=== PATIENT | male | born 1980 | race African-American/Black ===

== ENCOUNTER 2022-11-18 13:01 | Inpatient (IN) | payer OTHER ==
[2022-11-18 13:56] VITALS: BMI 28.3
[2022-11-18] MEDS ORDERED: guaiFENesin 200 MG/10 ML 10 ML UNIT-DOSE CUPS PO PRN (16:55)
[2022-11-18] MEDS ORDERED: ACETAMINOPHEN 325 MG TABLET (FP) PO PRN (16:55)
[2022-11-18] MEDS ORDERED: MAGNESIUM HYDROX 2400MG/30ML ORAL SUSPENSION 30 ML CUP PO PRN (16:55)
[2022-11-18] MEDS ORDERED: hydrOXYzine PAMOATE 25 MG CAPSULE (FP) PO PRN (16:55)
[2022-11-18] MEDS ORDERED: MAG HYDROX/AL HYDROX/SIMETH 30 ML UNIT-DOSE CUP PO PRN (16:55)
[2022-11-18] MEDS ORDERED: BENZOCAINE/MENTHOL (CHLORASEPTIC ) LOZENGE MM PRN (16:55)
[2022-11-18] MEDS ORDERED: IBUPROFEN 400 MG TABLET (FP) PO PRN (16:55)
[2022-11-18] MEDS ORDERED: NICOTINE POLACRILEX 2 MG GUM BC PRN (16:55)
[2022-11-18] MEDS ORDERED: POLYETHYLENE GLYCOL (HEALTHYLAX) 3350 17 GM PACKET PO PRN (16:55)
[2022-11-18] MEDS ORDERED: P-EPHED 60MG/TRIPROLIDI 2.5MG TABLET PO PRN (16:55)
[2022-11-18] MEDS ORDERED: LOPERAMIDE HCL 2 MG CAPSULE PO PRN (16:55)
[2022-11-18 21:40] VITALS: RESP 18
[2022-11-18] MEDS ORDERED: MELATONIN 5 MG TABLETS PO SCH (22:00)
[2022-11-18] MEDS ORDERED: THIAMINE HCL 100 MG TABLET (FP) PO SCH (22:00)
[2022-11-18] MEDS ORDERED: TUBERCULIN PPD 5 TU/0.1ML VIAL ID ONE (22:20)
[2022-11-18] MEDS: BACITRACIN 15 GM TUBE TOPICAL OINTMENT TP SCH (22:47)
[2022-11-19 08:01] VITALS: BP 146/96; PULSE 69; TEMP 97.5
[2022-11-19] MEDS ORDERED: methaDONE HCL 10 MG TABLET PO SCH (08:45)
[2022-11-19] MEDS ORDERED: methaDONE 80 MG, methaDONE 10 MG PO SCH (08:45)
[2022-11-19] MEDS: BACITRACIN 15 GM TUBE TOPICAL OINTMENT TP SCH (09:13)
[2022-11-19] MEDS ORDERED: PRENATAL VITAMINS W/ FOLIC ACID TABLET (FP) PO SCH (10:00)
[2022-11-19 10:58] LABS: HEMATOCRIT 36.5 % (35.4-49); HEMOGLOBIN 12.1 GM/dL (11.7-16.9); MCH 26.9 pg (25.7-33.7); MCHC 33.3 g/dl (32.0-35.9); MEAN CELL VOLUME 80.7 fl (80-96); MEAN PLT VOLUME 7.1 fl (7.5-11.1); PLATELET COUNT 266 10^3/uL (134-434); RBC 4.52 M/mm3 (4.00-5.60); RDW 14.8 % (11.9-15.9); WHITE BLOOD COUNT 6.4 K/mm3 (4.0-10.0)
[2022-11-19 11:01] LABS: CALCIUM 8.7 mg/dL (8.5-10.1)
[2022-11-19 11:02] LABS: ALBUMIN 2.7 g/dl (3.4-5.0); BLOOD UREA NITROGEN 11.3 mg/dL (7-18)
[2022-11-19 11:05] LABS: CREATININE 0.8 mg/dL (0.55-1.3)
[2022-11-19 11:07] LABS: BILIRUBIN,TOTAL 0.3 mg/dL (0.2-1); TOT PROT 6.9 g/dl (6.4-8.2)
== END 2022-11-19 19:55 | disposition left against medical advice (07) | DRG 770 ==
LOC: YASAS 13:01 → Y5N 20:51 → Y3W 11-19 18:34 → Y5N 11-19 19:32
PROVIDERS: ADMIT Allergy & Immunology; ATTEND Surgery
PROC: HZ42ZZZ Group Counseling for Substance Abuse Treatment, Cognitive-Behavioral (ICD-10-PCS; principal; 2022-11-18)
DX: F11.20 Opioid dependence, uncomplicated (principal); F14.20 Cocaine dependence, uncomplicated; F17.210 Nicotine dependence, cigarettes, uncomplicated; E11.42 Type 2 diabetes mellitus with diabetic polyneuropathy; I10 Essential (primary) hypertension; B18.2 Chronic viral hepatitis C; Z86.19 Personal history of other infectious and parasitic diseases; Z56.0 Unemployment, unspecified; Z59.01 Sheltered homelessness; Z28.310 Unvaccinated for COVID-19; Z28.9 Immunization not carried out for unspecified reason
CPT/HCPCS: 36415; 80053; 82962; 85027; 86780; C9803-CS; U0003; U0005